=== PATIENT | female | born 1995 | race Asian ===

== ENCOUNTER 2022-02-23 17:55 | Emergency (ER) | payer OTHER, SELFPAY ==
--- NOTE | ~2022-02-23 | XR_ITS ---
EXAM: XR abdomen/kub 1V DATE: 02/23/2022 18:40 HISTORY: mid-abdomen pain X 1 week . COMPARISON: None available. FINDINGS: Clear lung bases. Normal bowel gas pattern. No organomegaly. No abnormal abdominal calcifi cation. Regional bones and soft tissues normal for age. IMPRESSION: No radiographic evidence of obstruction or ileus. Reviewed, dictated and finalized at location K.
[2022-02-23 18:16] VITALS: BP 113/64; PULSE 72; RESP 16; TEMP 36.8; O2SAT 100
--- NOTE | 2022-02-23 18:24 | ED.GENADULT ---
HPI - General Adult General Chief complaint: Abdominal Pain Stated complaint: abdominal pain History of Present Illness HPI narrative: 26 y/o Female. PMHx UTI. Presents to ED today with acute complaints of mid-abdominal pain for the past 1 week. Client reports to have noticed a 'sharp' abdominal pain, surrounding her naval. However, with intermittent deferred pain to her RUQ and lower abdominal quadrants. She reports associated feelings of 'fullness', and decreased appetite. No significant weight fluctuations. Patient tells me she had felt constipated, took a laxative 2 days ago, and her symptoms seemed a bit improved. However, have since returned. Denies fever. No falls or abdominal traumas. No N/V. Denies flank pain or urinary concerns. No pelvic pain or vaginal discharge. Denies loose or bloody stool. She is without additional acute c/o upon PE. Related Data Home Medications Medication Instructions Recorded Confirmed No Home Medications 02/23/22 02/23/22 Allergies Allergy/AdvReac Type Severity Reaction Status Date / Time No Known Allergies Allergy Verified 02/23/22 18:26 Review of Systems Review of Systems: CONSTITUTIONAL: Denies fever, chills, sweats. EYES: Denies visual changes, redness, discharge. ENT: Denies rhinorrhea, congestion, sore throat, otalgia. CARDIOVASCULAR: Denies chest pain, palpitations, edema. RESPIRATORY: Denies dyspnea, wheezing, cough GASTROINTESTINAL: Positive abdominal pain. Appetite decrease. No nausea, vomiting, diarrhea. GENITOURINARY: Denies dysuria, hematuria, abnormal discharge SKIN: Denies rash or itching. MUSCULOSKELETAL: Denies acute back pain, joint pain, or myalgia. NEUROLOGIC: Denies numbness, or focal weakness. PSYCHIATRIC: Denies anxiety or depression. Exam Narrative: GENERAL: This is a well-nourished, well-developed adult, in no apparent distress. HEAD: normocephalic. EYES: PERRL. EARS: External ears normal. NOSE: External nose normal. THROAT: Mucous membranes moist. NECK: Neck supple, non-tender. CARDIOVASCULAR: Regular rate and rhythm without murmurs, gallops, or rubs. RESPIRATORY: Clear to auscultation. GASTROINTESTINAL: Abdomen soft, nondistended. Bowel sounds are active. There is generalized point tenderness, no rebound. No masses, no hernia, no guarding. SKIN: warm, intact. NEURO: No focal neurologic deficits. Course Course Level of Care: Express Care Visit Vital Signs Vital signs: Vital Signs Temperature 36.8 C 02/23/22 18:16 Pulse Rate 72 02/23/22 18:16 Respiratory Rate 16 02/23/22 18:16 Blood Pressure 113/64 02/23/22 18:16 Pulse Oximetry 100 02/23/22 18:16 Oxygen Delivery Room Air 02/23/22 18:16 Temperature 36.8 C 02/23/22 18:16 Pulse Rate 72 02/23/22 18:16 Respiratory Rate 16 02/23/22 18:16 Blood Pressure 113/64 02/23/22 18:16 Pulse Oximetry 100 02/23/22 18:16 Oxygen Delivery Room Air 02/23/22 18:16 Medical Decision Making MDM Narrative Medical decision making narrative: -Xray KUB: No acute intra-abdominal findings. -Urinalysis: Non-acute. -HCG U is negative. -She does not appear toxic, however does exhibit reproducible tenderness on exam. I am unable to r/o acute abdomen or additional acute complication, with limited resources in the Express Care setting. -2/2 above, I have recommended that she proceed to ED, for higher level of medical resources and work-up. -Client has declined ED transfer. -Risk Vs benefit has been reviewed, to include risk for more severe abdominal issues and/or , and she has chose to go home this evening. -Patient has been educated to proceed immediately to ED, should her pain persist, or should she change her mind and choose to forego further workup. Differential Diagnosis Differential Diagnosis: Differential Diagnosis: Consideration of the following conditions may be warranted for the presenting problem, they are not final diagnoses: Acute a
== END 2022-02-23 19:15 | disposition home or self-care (01) ==
PROVIDERS: Emergency Provider Nurse Practitioner Adult Health
DX: R10.33 Periumbilical pain (principal); R10.11 Right upper quadrant pain; R10.31 Right lower quadrant pain
CPT/HCPCS: 74018; 81003; 81025; 99213; G0463